=== PATIENT | male | born 1995 | race Two or more races ===

== ENCOUNTER 2022-12-13 00:23 | Emergency (ER) | payer SELFPAY ==
[~2022-12-13] VITALS: Ht 172.7 cm; Wt 65.8 kg
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
[2022-12-13] MEDS ORDERED: IBUPROFEN 600 MG TABLET ONE (02:10)
--- NOTE | 2022-12-13 02:21 | NUR ---
XRAY AT BEDSIDE
[2022-12-13] MEDS ORDERED: IBUPROFEN 600 MG TABLET PO ONE (02:30)
[2022-12-13] MEDS ORDERED: LIDOCAINE 2% 20 ML MDV ONE (03:39)
[2022-12-13] MEDS ORDERED: LIDOCAINE 1% INJ 50 ML MDV IJ ONE (04:00)
[2022-12-13] MEDS ORDERED: HYDROCODONE/APAP 5/325MG TABLET ONE (04:03)
[2022-12-13] MEDS ORDERED: HYDROCODONE/APAP 5/325MG TABLET PO ONE (04:30)
--- NOTE | 2022-12-13 04:40 | NUR ---
right hand splint done by
[2022-12-13] MEDS ORDERED: HYDR-4303 PO (04:41)
[2022-12-13] MEDS ORDERED: IBUP-1957 PO (04:41)
[2022-12-13 04:50] VITALS: BP 122/71
--- NOTE | 2022-12-13 04:51 | NUR ---
Patient discharged to home in stable condition. Written and verbal after care instructions given. Patient verbalizes understanding of instruction.
== END 2022-12-13 04:51 | disposition home or self-care (01) ==
LOC: ER 00:25
DX: S62.317A Displaced fracture of base of fifth metacarpal bone, left hand, initial encounter for closed fracture (principal); V89.2XXA Person injured in unspecified motor-vehicle accident, traffic, initial encounter; Y93.89 Activity, other specified; Y92.89 Other specified places as the place of occurrence of the external cause; Y99.8 Other external cause status
CPT/HCPCS: 99284; 26605; 73130; J3490